=== PATIENT | female | born 1965 | race Caucasian/White ===

== ENCOUNTER 2021-12-17 13:43 | Emergency (ER) | payer SELFPAY ==
[~2021-12-17] VITALS: Ht 162.6 cm; Wt 88.0 kg
[2021-12-17] MEDS ORDERED: FAMOTIDINE 20 MG/2 ML VIAL IV STA (13:58)
[2021-12-17] MEDS ORDERED: SODIUM CHLORIDE 0.9% 1000ML 1,000 ML IV ONE (14:00)
[2021-12-17] MEDS ORDERED: METHYLPREDNISOLONE SOD SUCC 125 MG/2ML VIAL IV ONE (14:00)
[2021-12-17] MEDS ORDERED: DIPHENHYDRAMINE HCL INJ 50 MG/ML VIAL IV ONE ×2 (14:30→16:00)
[2021-12-17 17:14] VITALS: BP 123/79
== END 2021-12-17 17:16 | disposition home or self-care (01) ==
LOC: ER 13:51
DX: R21 Rash and other nonspecific skin eruption (principal); L29.9 Pruritus, unspecified; T78.40XA Allergy, unspecified, initial encounter
CPT/HCPCS: 99283; J1200

== ENCOUNTER 2024-02-01 20:28 | Emergency (ER) | payer OTHER ==
[~2024-02-01] VITALS: Ht 162.6 cm; Wt 66.2 kg
[~2024-02-01 20:28] MED LIST: NAPROXEN250 MG PO
[2024-02-01 20:32] VITALS: PULSE 101; RESP 18; TEMP 98.2
[2024-02-01] MEDS ORDERED: ZANAFLEX4 MG PO (20:49)
[2024-02-01] MEDS ORDERED: IBUPROFEN200 MG PO (20:49)
[2024-02-01] MEDS ORDERED: KETOROLAC TROMETHAMINE 30 MG/ML VIAL ONE (21:01)
[2024-02-01] MEDS: KETOROLAC TROMETHAMINE 30 MG/ML VIAL IM ONE (21:25)
[2024-02-01] MEDS: ACETAMINOPHEN 325 MG TAB PO ONE (21:26)
[2024-02-01] MEDS: PREDNISONE 20 MG TAB PO ONE (21:26)
[2024-02-01 23:33] VITALS: BP 129/76; PULSE 76; RESP 18; TEMP 98.3; O2SAT 99
== END 2024-02-01 21:40 | disposition home or self-care (01) ==
LOC: FSED 20:33
DX: M51.26 Other intervertebral disc displacement, lumbar region (principal); X50.0XXA Overexertion from strenuous movement or load, initial encounter; Y92.89 Other specified places as the place of occurrence of the external cause; M19.09 Primary osteoarthritis, other specified site; F41.9 Anxiety disorder, unspecified
CPT/HCPCS: 72131; 99283; J1885; J7512